=== PATIENT | female | born 1960 | race Caucasian/White ===

== ENCOUNTER 2016-03-17 05:35 | Day surgery (SDC) | payer OTHER ==
[~2016-03-17] VITALS: Ht 170.2 cm; Wt 74.3 kg
[2016-03-17 06:11] VITALS: BP 152/69; PULSE 64; TEMP 97.7
[2016-03-17] MEDS ORDERED: VITAMINC1000TA PO (06:20)
[2016-03-17] MEDS ORDERED: VITAMIN D31000 I1 PO (06:21)
[2016-03-17] MEDS ORDERED: NIACIN FLUSH F400 MG PO (06:22)
[2016-03-17] MEDS ORDERED: VITAMIN B COMPL1 T16 PO (06:23)
[2016-03-17] MEDS ORDERED: THE MEDICINE S200 M2 PO (06:23)
[2016-03-17] MEDS ORDERED: MULTI VITAMINS1 TAB PO (06:24)
[2016-03-17] MEDS ORDERED: MOTRIN 200200 MG/TAB PO (06:25)
[2016-03-17 07:42] VITALS: BP 136/79; PULSE 54; TEMP 97.5
[2016-03-17 08:00] VITALS: BP 120/77; PULSE 53
[2016-03-17 08:15] VITALS: BP 146/83; PULSE 53
[2016-03-17 08:30] VITALS: BP 159/73; PULSE 51
[2016-03-17] MEDS ORDERED: NORCO 325 MG-51 TAB PO (09:39)
[2016-03-17] MEDS ORDERED: COLACE 100100 MG/CAP PO (09:39)
[2016-03-17] MEDS ORDERED: ZOFRAN 4MG T4 MG/TAB PO (09:40)
[2016-03-17] MEDS ORDERED: NAPROSYN500 MG PO (09:40)
== END 2016-03-17 09:00 | disposition home or self-care (01) ==
LOC: SDCO 05:35
DX: M65.312 Trigger thumb, left thumb (principal)
CPT/HCPCS: J0690; J1885; J2250; J2704; J3010; J7120

== ENCOUNTER → 2019-05-16 | Outpatient (CLI) | payer OTHER ==
[~2019-05-16] MED LIST: COLACE 100100 MG/CAP PO; MOTRIN 200200 MG/TAB PO; MULTI VITAMINS1 TAB PO; NAPROSYN500 MG PO; NIACIN FLUSH F400 MG PO; NORCO 325 MG-51 TAB PO; THE MEDICINE S200 M2 PO; VITAMIN B COMPL1 T16 PO; VITAMIN D31000 I1 PO; VITAMINC1000TA PO; ZOFRAN 4MG T4 MG/TAB PO
== END ==
LOC: COL.RAD 07:53
DX: R53.83 Other fatigue (principal); R68.82 Decreased libido; Z79.890 Hormone replacement therapy

== ENCOUNTER 2022-11-29 13:00 | Outpatient (RCR) | payer BC | END 2022-12-02 | disposition home or self-care (01) | LOC: WSPT | DX: M79.672 Pain in left foot (principal) ==

== ENCOUNTER 2022-12-06 07:20 | Emergency (ER) | payer OTHER ==
[~2022-12-06] VITALS: Ht 170.2 cm; Wt 75.9 kg
[2022-12-06 07:24] VITALS: PULSE 63; TEMP 98.9
[2022-12-06 08:08] VITALS: BP 147/83
== END 2022-12-06 08:08 | disposition home or self-care (01) ==
LOC: COL.ER 07:20
DX: S86.811A Strain of other muscle(s) and tendon(s) at lower leg level, right leg, initial encounter (principal); Z91.040 Latex allergy status; X50.1XXA Overexertion from prolonged static or awkward postures, initial encounter